=== PATIENT | female | born 1980 | race Caucasian/White ===

== ENCOUNTER 2021-06-17 08:26 | Emergency (ER) | payer BC ==
[2021-06-17 09:02] VITALS: BP 148/93; PULSE 100; TEMP 98.1; BMI 24.0
[2021-06-17 11:23] LABS: BASO % 0.6 % (0-2.0); EOS % 0.3 % (0-4.5); HEMATOCRIT 45.3 % (32.4-45.2); HEMOGLOBIN 15.7 GM/dL (10.7-15.3); LYMPH % 18.6 % (8-40); MCH 29.7 pg (25.7-33.7); MCHC 34.6 g/dl (32.0-36.0); MEAN CELL VOLUME 85.8 fl (80-96); MEAN PLT VOLUME 8.4 fl (7.5-11.1); MONO % 5.8 % (3.8-10.2); NEUT % 74.7 % (42.8-82.8); PLATELET COUNT 295 10^3/uL (134-434); RBC 5.28 M/mm3 (3.60-5.2); RDW 13.3 % (11.6-15.6); WHITE BLOOD COUNT 8.1 K/mm3 (4.0-10.0)
[2021-06-17 11:40] LABS: CHLORIDE 110 mmol/L (98-107); SODIUM 142 mmol/L (136-145)
[2021-06-17 11:41] LABS: CALCIUM 9.6 mg/dL (8.5-10.1)
[2021-06-17 11:42] LABS: ALBUMIN 3.5 g/dl (3.4-5.0); ANION GAP 7 MMOL/L (8-16); BLOOD UREA NITROGEN 11.1 mg/dL (7-18); CO2 24 mmol/L (21-32); GLUCOSE,RANDOM 110 mg/dL (74-106)
[2021-06-17 11:45] LABS: CREATININE 0.7 mg/dL (0.55-1.3); SGOT/AST 44 U/L (15-37)
[2021-06-17 11:47] LABS: TOT PROT 7.4 g/dl (6.4-8.2)
[2021-06-17 11:48] LABS: ALK PHOS 71 U/L (45-117)
[2021-06-17 11:52] LABS: BILIRUBIN,TOTAL 0.4 mg/dL (0.2-1)
[2021-06-17 12:02] LABS: SGPT/ALT 35 U/L (13-61)
[2021-06-17 12:45] LABS: MAGNESIUM 2.3 mg/dL (1.8-2.4)
== END 2021-06-17 13:08 | disposition home or self-care (01) ==
LOC: JER 08:26
DX: R00.2 Palpitations (principal)
CPT/HCPCS: 36415; 71046-TC-FY; 80053; 82550; 82553; 83735; 84484; 85025; 93005; 93010; 99285-25